=== PATIENT | male | born 1940 | race Caucasian/White ===

== ENCOUNTER 2018-02-15 17:00 | Emergency (ER) | payer MEDICARE, BC ==
[~2018-02-15] VITALS: Ht 185.4 cm; Wt 86.4 kg
[~2018-02-15 17:00] MED LIST: ASPI-1265 PO; DUTA0.5C40 PO; ESOM40CA PO; EZET1TAB23 PO; FLO0.4C PO; HUMULOG SQ; LANTUS SQ; OCUVITE PO; VALS80TA2 PO; [UNRECOGNIZED DRUG - CODE] PO; [UNRECOGNIZED DRUG - OTHER] PO
[2018-02-15 17:02] VITALS: BP 165/73
[2018-02-15] MEDS ORDERED: orphenadrine citrate 60mg/2ml inj. IM ONE (17:15)
[2018-02-15] MEDS ORDERED: HYDROcodone/acetaminophen 10/325mg tab PO ONE (17:15)
[2018-02-15] MEDS ORDERED: HYDR-4383 PO (17:23)
== END 2018-02-15 19:14 | disposition home or self-care (01) ==
LOC: ER 17:00
DX: S32.010A Wedge compression fracture of first lumbar vertebra, initial encounter for closed fracture (principal); M54.5 Low back pain; Z95.1 Presence of aortocoronary bypass graft; Z98.890 Other specified postprocedural states; Z79.82 Long term (current) use of aspirin; Z79.4 Long term (current) use of insulin; Z79.899 Other long term (current) drug therapy; W18.39XA Other fall on same level, initial encounter; Y93.89 Activity, other specified; Y92.89 Other specified places as the place of occurrence of the external cause; Y99.8 Other external cause status
CPT/HCPCS: 72131; 96372; 99284; J2360

== ENCOUNTER 2018-02-19 09:17 | Emergency (ER) | payer MEDICARE, BC ==
[~2018-02-19] VITALS: Ht 185.4 cm; Wt 70.0 kg
[~2018-02-19 09:17] MED LIST changes: +HYDR-4383 PO
[2018-02-19] MEDS ORDERED: HYDROmorphone 2mg tablet PO PRN (10:00)
[2018-02-19] MEDS ORDERED: OXYC-150 PO (10:45)
[2018-02-19] MEDS ORDERED: DIAZ2TAB PO (10:45)
[2018-02-19] MEDS ORDERED: FLO0.4C PO (11:29)
[2018-02-19 12:06] VITALS: BP 166/80
== END 2018-02-19 12:15 | disposition home or self-care (01) ==
LOC: ER 09:17
DX: S32.018D Other fracture of first lumbar vertebra, subsequent encounter for fracture with routine healing (principal); I10 Essential (primary) hypertension; E11.9 Type 2 diabetes mellitus without complications; M19.90 Unspecified osteoarthritis, unspecified site; Z95.1 Presence of aortocoronary bypass graft; Z79.82 Long term (current) use of aspirin; Z79.899 Other long term (current) drug therapy; Z79.4 Long term (current) use of insulin; W19.XXXD Unspecified fall, subsequent encounter
CPT/HCPCS: 99284; P9612

== ENCOUNTER 2018-03-24 06:40 | Day surgery (SDC) | payer MEDICARE, BC ==
[2018-03-24] VITALS (8 sets, daily range): BP systolic 72–158; BP diastolic 41–72
[~2018-03-24] VITALS: Ht 185.4 cm; Wt 84.5 kg
[~2018-03-24 06:40] MED LIST changes: +DIAZ2TAB PO; +OXYC-150 PO
[2018-03-24] MEDS ORDERED: normal saline 1000ml 1,000 ML IV PRN (07:10)
[2018-03-24] MEDS ORDERED: cefazolin/dext.iso 2gm/50ml 50 ML IV ONE (07:10)
[2018-03-24] MEDS ORDERED: LOSA25TA12 PO (07:16)
[2018-03-24] MEDS ORDERED: INSU100I8 SQ (07:16)
[2018-03-24] MEDS ORDERED: ROSU40TA PO (07:16)
[2018-03-24] MEDS ORDERED: LUTE6CAP PO (07:19)
[2018-03-24] MEDS ORDERED: CHOL2000 PO (07:22)
[2018-03-24] MEDS ORDERED: OMEG1CAP21 PO (07:22)
[2018-03-24] MEDS ORDERED: MULT-1141 PO (07:22)
[2018-03-24] MEDS ORDERED: CART1TAB4 PO (07:22)
[2018-03-24 07:54] LABS: BASOPHILS % (AUTO) 0.6 % (0-1); EOSINOPHILS # (AUTO) 0.2 X10'3 (0-0.9); EOSINOPHILS % (AUTO) 3.1 % (0-6); LYMPHOCYTES # (AUTO) 1.1 X10'3 (1.1-4.8); LYMPHOCYTES % (AUTO) 18.7 % (21-51); MEAN CORPUSCULAR HEMOGLOBIN 31.2 PG (27.0-31.0); MEAN CORPUSCULAR HGB CONC 33.5 % (33.0-36.5); MEAN CORPUSCULAR VOLUME 93.3 FL (78-98); MEAN PLATELET VOLUME 9.2 FL (7.4-10.4); MONOCYTES # (AUTO) 0.5 X10'3 (0-0.9); MONOCYTES % (AUTO) 8.1 % (2-12); NEUTROPHILS # (AUTO) 4.1 X10'3 (1.8-7.7); NEUTROPHILS % (AUTO) 69.5 % (42-75); PRE OP HEMATOCRIT 42.3 % (42.0-52.0); PRE OP HEMOGLOBIN 14.2 g/dL (14.0-17.9); PRE OP PLATELET COUNT 150 X10'3 (140-440); RED BLOOD COUNT 4.54 X10'6 (4.70-6.10); RED CELL DISTRIBUTION WIDTH 13.7 % (11.5-14.5)
[2018-03-24 08:09] LABS: ALBUMIN 3.4 G/DL (3.4-5.0); ANION GAP 7 (8-16); BLOOD UREA NITROGEN 22 MG/DL (7-18); BUN/CREATININE RATIO 20.4 (5.4-32.0); CALCIUM 9.1 MG/DL (8.5-10.1); CHLORIDE 100 MMOL/L (99-107); CREATININE 1.08 MG/DL (0.60-1.10); GLUCOSE 305 MG/DL (70-104); POTASSIUM 4.8 MMOL/L (3.5-5.1); SODIUM 135 MMOL/L (135-145); TOTAL CARBON DIOXIDE 27.8 MMOL/L (24-32); eGFR 66 ML/MIN
[2018-03-24] MEDS ORDERED: midazolam 2 mg/2 ml injection IV PRN (08:10)
[2018-03-24] MEDS ORDERED: LIDOcaine 1%/PF 5ML 10 MG/ML VIAL SQ ONE (08:10)
[2018-03-24] MEDS ORDERED: diphenhydrAMINE 50 mg/ml inj IV ONE (08:10)
[2018-03-24] MEDS ORDERED: fentaNYL/PF 50MCG/1 ML 2ML syringe IV PRN (08:10)
[2018-03-24] MEDS ORDERED: fentaNYL/PF 50MCG/1 ML 2ML syringe ONE ×2 (08:20→09:10)
[2018-03-24] MEDS ORDERED: midazolam 2 mg/2 ml injection ONE ×2 (08:20→09:10)
[2018-03-24] MEDS ORDERED: diphenhydrAMINE 50 mg/ml inj ONE (08:20)
[2018-03-24] MEDS ORDERED: iohexol 300 MG/1 ML 50ml polymer ONE (08:21)
[2018-03-24 08:22] LABS: PROTHROMBIN TIME 10.5 SECONDS (9.0-12.0)
[2018-03-24] MEDS ORDERED: LIDOcaine 1%/PF 5ML 10 MG/ML VIAL ONE (08:23)
[2018-03-24] MEDS ORDERED: HYDROcodone/acetaminophen 5mg/325mg tablet PO PRN (09:55)
== END 2018-03-24 13:00 | disposition home or self-care (01) ==
LOC: SSTAY O 06:40
PROVIDERS: ATTEND Radiology Diagnostic Radiology
DX: M48.56XA Collapsed vertebra, not elsewhere classified, lumbar region, initial encounter for fracture (principal); M54.5 Low back pain; I10 Essential (primary) hypertension; I25.10 Atherosclerotic heart disease of native coronary artery without angina pectoris; M19.042 Primary osteoarthritis, left hand; M19.041 Primary osteoarthritis, right hand; I11.9 Hypertensive heart disease without heart failure; Z95.1 Presence of aortocoronary bypass graft; Z95.5 Presence of coronary angioplasty implant and graft; Z79.4 Long term (current) use of insulin; Z79.82 Long term (current) use of aspirin; Z98.41 Cataract extraction status, right eye; Z98.42 Cataract extraction status, left eye; Z72.89 Other problems related to lifestyle; Z85.828 Personal history of other malignant neoplasm of skin; Z98.890 Other specified postprocedural states; Z79.899 Other long term (current) drug therapy; Z82.49 Family history of ischemic heart disease and other diseases of the circulatory system
CPT/HCPCS: 22514; 36415; 80048; 82948; 85025; 85610; 99152; 99153; C1713; J0690; J1200; J2001; J2250; J3010; J7030; Q9967

== ENCOUNTER 2019-03-24 08:20 | Day surgery (SDC) | payer MEDICARE, BC ==
[2019-03-18 11:57] LABS: CLARITY,URINE CLEAR (Clear); COLOR,URINE YELLOW (Yellow); GLUCOSE, URINE NEGATIVE (Neg); KETONES,URINE NEGATIVE (Neg); LEUKOCYTE ESTERASE ,URINE NEGATIVE (Neg); NITRITES, URINE NEGATIVE (Neg); OCCULT BLOOD,URINE TRACE-INTACT (Neg); PROTEIN,URINE NEGATIVE (Neg); UROBILINOGEN,URINE 0.2 E.U/dL (0.2-1.0)
[2019-03-18 11:58] LABS: BASOPHILS % (AUTO) 0.4 % (0-1); EOSINOPHILS # (AUTO) 0.1 X10'3 (0-0.9); EOSINOPHILS % (AUTO) 1.9 % (0-6); LYMPHOCYTES # (AUTO) 0.9 X10'3 (1.1-4.8); LYMPHOCYTES % (AUTO) 13.5 % (21-51); MEAN CORPUSCULAR HEMOGLOBIN 32.1 PG (27.0-31.0); MEAN CORPUSCULAR HGB CONC 33.9 g/dL (33.0-36.5); MEAN CORPUSCULAR VOLUME 94.6 FL (78-98); MEAN PLATELET VOLUME 9.4 FL (7.4-10.4); MONOCYTES # (AUTO) 0.4 X10'3 (0-0.9); MONOCYTES % (AUTO) 6.4 % (2-12); NEUTROPHILS # (AUTO) 5.4 X10'3 (1.8-7.7); NEUTROPHILS % (AUTO) 77.8 % (42-75); PRE OP HEMATOCRIT 40.9 % (42.0-52.0); PRE OP HEMOGLOBIN 13.9 g/dL (14.0-17.9); PRE OP PLATELET COUNT 157 X10'3 (140-440); RED BLOOD COUNT 4.33 X10'6 (4.70-6.10); RED CELL DISTRIBUTION WIDTH 13.9 % (11.5-14.5)
[2019-03-18 12:12] LABS: ALBUMIN 3.5 G/DL (3.4-5.0); ALBUMIN/GLOBULIN RATIO 1.1 (1.1-1.5); ALKALINE PHOSPHATASE 68 IU/L (46-116); BLOOD UREA NITROGEN 23 MG/DL (7-18); BUN/CREATININE RATIO 26.7 (5.4-32.0); CALCIUM 8.5 MG/DL (8.5-10.1); CHLORIDE 105 MMOL/L (99-107); CREATININE 0.86 MG/DL (0.60-1.10); PRE OP ALT 21 U/L (30-65); PRE OP ANION GAP 3 (8-16); PRE OP AST 25 U/L (10-37); PRE OP BILIRUB, TOTAL 0.6 MG/DL (0.0-1.0); PRE OP GLUCOSE 155 MG/DL (70-104); PRE OP POTASSIUM 4.3 MMOL/L (3.4-5.1); PRE OP SODIUM 140 MMOL/L (135-145); TOTAL PROTEIN 6.8 G/DL (6.4-8.2); eGFR 86 ML/MIN
[2019-03-18 12:32] LABS: UA COLLECTION TYPE CLN CATCH MIDSTREAM
[2019-03-18 12:37] LABS: MUCUS STRANDS NONE SEEN /LPF (Neg); SQUAMOUS EPITHELIAL CELL,UR FEW /LPF (FEW); TRANSITIONAL EPI CELLS,URINE FEW /HPF
[2019-03-18 12:38] LABS: BACTERIA,URINE NONE SEEN /HPF (Neg); RBC,URINE 0-2 /HPF (0-2); WBC,URINE NONE SEEN /HPF (0-4)
[2019-03-24] VITALS (16 sets, daily range): BP systolic 101–144; BP diastolic 50–83
[~2019-03-24] VITALS: Ht 182.9 cm; Wt 85.3 kg
[~2019-03-24 08:20] MED LIST changes: +CART1TAB4 PO; +CHOL2000 PO; +Cefazolin 2GM/100ML NS IVPB 100 ML IV ONE; -DIAZ2TAB PO; -DUTA0.5C40 PO; -EZET1TAB23 PO; -HUMULOG SQ; -HYDR-4383 PO; +INSU100I8 SQ; +LOSA25TA41 PO; +OMEG1CAP21 PO; -OXYC-150 PO; +ROSU40TA PO; -VALS80TA2 PO; -[UNRECOGNIZED DRUG - OTHER] PO; +cefazolin/dext.iso 2gm/100ml 100 ML IV ONE; +famotidine 10mg tablet PO ONE; +famotidine 20mg tablet PO ONE; +ringers solution, lacted 1,000 ML IV SCH
[2019-03-24] MEDS ORDERED: ringers solution, lacted 1,000 ML IV SCH (10:32)
[2019-03-24] MEDS ORDERED: meperidine/PF 25mg/ml syringe IV PRN ×3 (10:35)
[2019-03-24] MEDS ORDERED: ondansetron/PF 4mg/2ml inj IV PRN (10:35)
[2019-03-24] MEDS ORDERED: proCHLORperazine 10 MG/2 ml inj IV PRN (10:35)
[2019-03-24] MEDS ORDERED: morphine 4 MG/ML inj SYRINge IV PRN ×2 (10:35)
[2019-03-24] MEDS ORDERED: BUPIVAcaine/PF 2.5 mg/ml (0.25%) 30ml vial ONE (10:40)
[2019-03-24] MEDS ORDERED: ceFAZolin 1000mg inj ONE (10:40)
[2019-03-24] MEDS ORDERED: sevoflurane 250ml liquid IH ONE (11:21)
[2019-03-24] MEDS ORDERED: fentaNYL/PF 50MCG/1 ML 2ML syringe ONE (11:24)
[2019-03-24] MEDS ORDERED: midazolam 2 mg/2 ml injection ONE (11:26)
[2019-03-24] MEDS ORDERED: propofol inj 20 ML IV ONE (12:04)
[2019-03-24] MEDS ORDERED: rocuronium 10mg/ml inj IV ONE (12:04)
[2019-03-24] MEDS ORDERED: sugammadex 200mg/2ml injection IV ONE (12:06)
--- NOTE | 2019-03-24 12:21 | NUR ---
Received from OR via [facility], accompanied by Anesthesiologist DR GARDNER and report given by Anesthesiologist. PT VERY DROWSY, NO S/S OF DISTERSS/DISCOMFORT, ABDOMEN W/2 LAP SITES W/BANDAIDS CDI, BS 218, DR GARDNER AWARE, NO ORDERS AT THIS TIME. Addendum: 03/24/19 at 1614 by Babita Kong RN Amended: Links added.
--- NOTE | 2019-03-24 16:15 | NUR ---
PT ATTEMPTING TO VOID X 2 NOW, BLADDER SCANNED FOR 172 ML, GIVING IV FLUIDS AND ORAL FLUIDS, PT CHECKED HIS OWN BS, WAS 216, PT WILL GIVE HIS OWN INSULIN WHEN HE EATS AND WAS APPROVED BY DR GARDNER W/A VERBAL ORDER. Addendum: 03/24/19 at 1621 by Babita Kong RN Amended: Links added.
--- NOTE | 2019-03-24 16:50 | NUR ---
PT CONSUMED 1/2 TURKEY SANDWICH W/A BOWL OF CHICKEN NOODLE SOUP, GAVE HIMSELF 6 UNITS OF REGULAR INSULIN. Addendum: 03/24/19 at 1653 by Babita Kong RN Amended: Links added.
--- NOTE | 2019-03-24 17:41 | NUR ---
PT WAS ABLE TO VOID, D/C INSTRUCTIONS GIVEN AND GONE OVER W/PT AND PTS WHOM VERBALIZE UNDERSTANDING, PT D/CD TO HOME VIA W/C TO PRIVATE VEHICLE W/O INCIDENT. Addendum: 03/24/19 at 1854 by Babita Kong RN Amended: Links added.
== END 2019-03-24 17:41 | disposition home or self-care (01) ==
LOC: PAS 08:20
PROVIDERS: ATTEND Surgery
DX: K40.91 Unilateral inguinal hernia, without obstruction or gangrene, recurrent (principal); E10.9 Type 1 diabetes mellitus without complications; I10 Essential (primary) hypertension; Z95.5 Presence of coronary angioplasty implant and graft; N40.0 Benign prostatic hyperplasia without lower urinary tract symptoms; Z98.890 Other specified postprocedural states; Z79.899 Other long term (current) drug therapy
CPT/HCPCS: 36415; 49651; 80053; 81001; 82948; 85025; 93005; C1781; C9399; J0690; J2250; J2704; J3010; J3490; J7120; A4215; A4314; A4618; A6258; A7000